=== PATIENT | female | born 1980 | race Two or more races ===

== ENCOUNTER 2020-04-27 22:03 | Emergency (ER) | payer BC ==
[~2020-04-27] VITALS: Ht 154.9 cm; Wt 81.6 kg
[2020-04-27 22:10] VITALS: BP 132/86
--- NOTE | 2020-04-27 22:54 | NUR ---
Patient discharged to home in stable condition. Written and verbal after care instructions given. Patient verbalizes understanding of instruction.
--- NOTE | 2020-04-29 05:38 | NUR ---
PATIENT NOTIFIED REGARDING COVID RESULT.
== END 2020-04-27 23:45 | disposition home or self-care (01) ==
LOC: ER 22:06
DX: U07.1 COVID-19 (principal); R51 Headache
CPT/HCPCS: 99283; C9803; U0003